=== PATIENT | female | born 1935 | race Caucasian/White ===

== ENCOUNTER 2017-10-08 17:16 | Emergency (ER) | payer OTHER ==
[2017-10-08 17:29] VITALS: BP 154/75
--- NOTE | 2017-10-08 17:37 | UC ---
Hand/Wrist HPI - HPI Summary HPI Summary: C/O left index finger redness swelling and pain since yesterday. Much worse today. Redness is spreading up to the first knuckle. - History Of Current Complaint Chief Complaint: UCUpperExtremity Stated Complaint: L FINGER - PAIN AND SWOLLEN Time Seen by Provider: 10/08/17 17:30 Hx Obtained From: Patient Hx Last Menstrual Period: n/a Onset/Duration: Worse Since - today Severity Initially: Mild Severity Currently: Severe Pain Intensity: 9 Character Of Pain: Sharp, Throbbing Aggravating Factor(s): Movement Alleviating Factor(s): Nothing Associated Signs And Symptoms: Positive: Swelling, Redness. Negative: Fever Related History: Dominant Hand Right - Allergies/Home Medications Allergies/Adverse Reactions: Allergies Allergy/AdvReac Type Severity Reaction Status Date / Time No Known Allergies Allergy Verified 10/08/17 17:29 PMH/Surg Hx/FS Hx/Imm Hx Endocrine History: Diabetes Cardiovascular History: Hypertension Respiratory History: Asthma - Surgical History Surgical History: Yes Surgery Procedure, Year, and Place: colon cancer 1/2 colon removed. - Family History Known Family History: Positive: Cardiac Disease, Hypertension, Diabetes - Social History Occupation: Retired Lives: With Family Alcohol Use: None Substance Use Type: None Smoking Status (MU): Never Smoked Tobacco Review of Systems Skin: Other - redness left index finger Is Patient Immunocompromised?: No All Other Systems Reviewed And Are Negative: Yes Physical Exam Triage Information Reviewed: Yes Appearance: Well-Appearing, Well-Nourished, Pain Distress - mild Vital Signs: Initial Vital Signs Temp 99.1 F 10/08/17 17:24 Pulse 100 10/08/17 17:24 Resp 16 10/08/17 17:24 BP 154/75 10/08/17 17:24 Pulse Ox 96 10/08/17 17:24 Vital Signs Reviewed: Yes Eyes: Positive: Conjunctiva Clear Neck exam: Normal Respiratory Exam: Normal Cardiovascular Exam: Normal Musculoskeletal: Positive: ROM Limited @ - Left index finger DIP, Edema @ - pretibial edema 1-2+ bilaterally Neurological Exam: Normal Psychological Exam: Normal Skin: Positive: Other - Erythema with tenderness on the ulnar side of the left index fingernail with erythema extending proximally to the DIP. Hand/Wrist Course/Dx - Differential Dx/Diagnosis Differential Diagnosis/HQI/PQRI: Abrasion, Cellulitis, Felon, Paronychia Provider Diagnoses: Paronychia left index finger Discharge - Sign-Out/Discharge Documenting (check all that apply): Discharge/Admit/Transfer - Discharge Plan Condition: Stable Disposition: HOME Prescriptions: Sulfamethox/Trimethoprim DS* [Bactrim DS 800/160 TAB*] 1 tab PO BID #14 tab Patient Education Materials: Paronychia (ED), Sulfamethoxazole/Trimethoprim ( By mouth) Referrals: Palmira Cochran MD [Primary Care Provider] - Additional Instructions: Decrease potassium in the diet on the antibiotics For leg cramps: 1. Good hydration. 2. Vit D3 5000iu 3 caps all at once once a week= 2000iu a day. 3. Calcium 1000-1200mg a day. 4. Magnesium 400 or 500mg in the evening. - Billing Disposition and Condition Condition: STABLE Disposition: Home
[2017-10-08] MEDS ORDERED: Sulfamethox/Trimethoprim DS 800/160* TAB PO ONE (17:44)
== END 2017-10-08 18:01 | disposition home or self-care (01) ==
LOC: UCCORT 17:16
DX: L03.012 Cellulitis of left finger (principal); E11.9 Type 2 diabetes mellitus without complications; I10 Essential (primary) hypertension
CPT/HCPCS: 99213; A9270-GY; G0463

== ENCOUNTER 2019-01-31 18:26 | Emergency (ER) | payer MEDICARE ==
--- OUTSIDE RECORDS SUMMARY | 2019-01-31 18:36 | XMS REPORT | Continuity of Care Document ---
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 Farzana Tee, REFERRAL CLERK Onset: 12/08/2011 Gastroesophageal reflux disease Pam Jerez MD Onset: 02/07/2011 Vitamin deficiency Pam Jerez MD Onset: 02/07/2011 Benign essential hypertension Pam Jerez MD Onset: 01/27/2011 Pain in limb Marcello Woodruff M.D., Onset: 12/25/2018 [facility] Dyspnea Marcello Woodruff M.D., Onset: 12/25/2018 [facility] Social History Type Date Description Comments Sex Unknown Tobacco Use Start: Unknown Never Smoked Cigarettes ETOH Use Denies alcohol use Tobacco Use Start: Unknown Patient has never smoked Smoking Status Reviewed: 12/25/18 Patient has never smoked Allergies, Adverse Reactions, Alerts Active Allergies Reaction Severity Comments Date Propoxyphene Dyspepsia 01/27/2011 Azathioprine 01/27/2011 Pen-Vee-K GI, unsure 08/10/2011 Penicillin G Hives 12/25/2018 Medications Active Medications SIG Qnty Indications Ordering Provider Date Vitamin D3 50MG/2000 take 1 tablet Marcello Woodruff 12/25/2018 Iu daily Junaid Mcqueen, [facility] B 12 500 MG take one tablet Marcello Woodruff 12/25/2018 by mouth daily Junaid Mcqueen, [facility] Apple Cidar take 1 capsule Marcello Woodruff 12/25/2018 one per day Junaid Mcqueen, [facility] Metoprolol Tartrate take 3 tablets 180tabs [place], 04/22/2015 every day MD Pam 25mg Tablets Metformin HCL 1 by mouth twice 180tabs [place], 500mg a day MD Pam Tablets Omeprazole 1 by mouth every 90caps [place], 20mg day MD Pam Capsules DR Hartman HFA 1-2 puffs q 4-6 1units [place], 108mcg/Act hours prn MD Pam Aerosol Aspirin 81 1 by mouth every Unknown 81mg Tablets day Ramipril 1 by mouth every Unknown 10mg Capsules day Coconut Oil 1 by mouth every Unknown 1000mg day Capsules [place] 3 500 take one every Unknown 500mg day Capsules Vitamin C take 2 in the Unknown 500mg morning Chewtabs Garlic 1 by mouth every Unknown 1000mg Capsules day Vitamin E Complex 1 by mouth every Unknown day 400Unit Capsules Immunizations CPT Code Status Date Vaccine Lot # [id number] Given 03/31/2015 Pneumococcal Conjugate Vaccine 13 Valent For [id number] Intramuscular Use Q2038 Given 02/27/2015 Influenza Vaccine (Fluzone) Age 3 And Older 84618 Given 01/06/2014 flu vaccination 13675 Given 03/15/2013 flu vaccination 94935 Given 01/20/2012 Pneumovax Injection Vital Signs Date Vital Result Comment 12/25/2018 3:14pm BP Systolic Sitting Left Arm 148 mmHg BP Diastolic Sitting Left Arm 70 mmHg Heart Rate 66 /min Respiratory Rate 20 /min Weight 201.25 lb O2 % BldC Oximetry 96 % Ra 07/01/2015 10:44am BP Systolic 188 mmHg BP Diastolic 90 mmHg Body Temperature 98.2 F Heart Rate 93 /min Respiratory Rate 18 /min Height 62.75 inches 5'2.75" Weight 221.12 lb BMI (Body Mass Index) 39.5 kg/m2 BSA (Body Surface Area) 2.01 m2 O2 % BldC Oximetry 97 % Results Description No Information Available Procedures Date Code Description Status 12/25/2018 12220 EKG-Tracing And Report Completed 04/24/2011 71934526 Colonoscopy Completed 04/24/2011 58752258 Mammogram Completed 04/24/2009 694884608 Bone Mineral Density Test Completed Medical Devices Description No Information Available Encounters Type Date Location Provider Dx Diagnosis Office Visit 12/25/2018 Cardiology Office Marcello Woodruff I10 Essential ( primary) 2:40p Junaid Mcqueen, [facility] hypertension R06.02 Shortness of breath M79.606 Pain in leg, unspecified Assessments Date Code Description Provider 12/25/2018 I10 Essential (primary) hypertension Marcello Woodruff M.D., [facility] 12/25/2018 R06.02 Shortness of breath Marcello Woodruff M.D., [facility] 12/25/2018 M79.606 Pain in leg, unspecified Marcello Woodruff M.D., [facility] Plan of Treatment 12/25/2018 - Marcello Woodruff M.D., [facility]10 Essential (primary) hypertensionComments:BP goal is <130/80 mmHg. Controlled No changes.R06.02 Shortness of breathNew Orders:Echocardiogram, Scheduled: 01/03/19Comments:She will have an echo to determine LVF. I believe her SOB may be related to her [id number] Pain in leg, unspecifiedComments:It seems to me that the pain may be related to neuritis and not to circulatory issues. She will address this issue with her PCPAllNew Medication:Vitamin D3 50MG/2000 Iu - take 1 tablet dailyB 12 500 MG - take one tablet by mouth dailyApple Cidar - take 1 capsule one per dayFollow up:Follow up with us on a PRN basis. Functional Status Functional Condition Comment Date Status Glasses Active Mental Status Description No Information Available Referrals Description No Information Available
--- OUTSIDE RECORDS SUMMARY | 2019-01-31 18:36 | XMS REPORT | Continuity of Care Document ---
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 Mechanic Apprentice [phone] Problems Active Problems Provider Date Malignant tumor of colon Kale Ford, Onset: 11/30/2011 [facility]: 11/29/2012 [facility]ener[facility] Onset: 2012 multiple joints Malignant tumor of ascending colon 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, 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 Onset: 12/08/2011 Gastroesophageal reflux disease Pam Jerez MD Onset: 02/07/2011 Vitamin deficiency Pam Jerez MD Onset: 02/07/2011 Benign essential hypertension Pam Jerez MD Onset: 01/27/2011 Pain in limb Marcello Woodruff M.D., Onset: 12/25/2018 [facility] Dyspnea Marcello Woodruff M.D., Onset: 12/25/2018 [facility] Social History Type Date Description Comments [...] Marcello Woodruff 12/25/2018 Iu daily Junaid Mcqueen, [facility] B 12 500 MG take one tablet Marcello Woodruff 12/25/2018 by mouth daily Junaid Mcqueen, [facility] Apple Cidar take 1 capsule Marcello Woodruff 12/25/2018 one per day Junaid Mcqueen, [facility] Metoprolol Tartrate take 3 tablets 180tabs [place], 04/22/2015 every day MD Pam 25mg Tablets Metformin HCL 1 by mouth twice 180tabs [place], 500mg a day MD Pam Tablets Omeprazole 1 by mouth every 90caps [place], 20mg day MD Pam Capsules DR Hartman HFA 1-2 puffs q 4-6 1units [place], 108mcg/Act hours prn MD Pam Aerosol Aspirin 81 1 by mouth every Unknown 81mg Tablets day DR [place] 1 by mouth every Unknown 10mg Capsules day Coconut Oil 1 by mouth every Unknown 1000mg day Capsules [place] 3 500 take one every Unknown 500mg day Capsules Vitamin C take 2 in the Unknown 500mg morning Chewtabs Garlic 1 by mouth every Unknown 1000mg Capsules day Vitamin E Complex 1 by mouth every Unknown day 400Unit Capsules Immunizations CPT Code Status Date Vaccine Lot # [id number] Given 03/31/2015 Pneumococcal Conjugate Vaccine 13 Valent For [id number] Intramuscular Use Q2038 Given 02/27/2015 Influenza Vaccine (Fluzone) Age 3 And Older 03929 Given 01/06/2014 flu vaccination 26572 Given 03/15/2013 flu vaccination 87385 Given 01/20/2012 Pneumovax Injection Vital Signs Date [...] Available Procedures Date Code Description Status 12/25/2018 86339 EKG-Tracing And Report Completed 04/24/2011 [id number] Colonoscopy Completed 04/24/2011 [id number] Mammogram Completed 04/24/2009 247124041 Bone Mineral Density Test Completed Medical Devices Description No Information Available Encounters Type Date Location Provider Dx Diagnosis Office Visit 12/25/2018 Cardiology Office Marcello Woodruff I10 Essential ( primary) 2:40p Junaid Mcqueen, [facility] hypertension R06.02 Shortness of breath M79.606 Pain in leg, unspecified Assessments Date Code Description Provider 12/25/2018 I10 Essential (primary) hypertension Marcello Woodruff M.D., [facility] 12/25/2018 R06.02 Shortness of breath Marcello Woodruff M.D., [facility] 12/25/2018 M79.606 Pain in leg, unspecified Marcello Woodruff M.D., [facility] Plan of Treatment 12/25/2018 - Marcello Woodruff M.D., [facility]10 Essential (primary) hypertensionComments:BP goal is <130/80 mmHg. Controlled No changes.R06.02 Shortness of breathNew Orders:Echocardiogram, Ordered: 12/25/18Comments:She will have an echo to determine LVF. I believe her SOB may be related to her [id number] Pain in leg, unspecifiedComments:It seems to me [...]
--- OUTSIDE RECORDS SUMMARY | 2019-01-31 18:36 | XMS REPORT | Continuity of Care Document ---
:1935 External Reference #:[id number] Author Name Palmira Cochran MD Address [address] [place] [address] Care Team Providers Name Role Phone [facility] Diabetes Education - Diabetes Care Team Information It Service Continuity Supervisor Educator [facility] Food And Nutrition Dept - Care Team Information It Service Continuity Supervisor [phone] Nutrition, Education Curt Posada MD Care Team Information It Service Continuity Supervisor [phone] Kale Ford MD - Surgery Care Team Information It Service Continuity Supervisor [phone] Marcello Woodruff MD - Cardiovascular Care Team Information It Service Continuity Supervisor Disease Problems Active Problems Provider Date Type 2 diabetes mellitus Palmira Cochran MD Onset: 07/14/2015 Essential hypertension Palmira Cochran MD Onset: 02/05/2016 Gastroesophageal reflux disease Palmira Cochran MD Onset: 12/30/2004 Localized, primary osteoarthritis Palmira Cochran MD Onset: 07/14/2015 History of malignant neoplasm of colon Palmira Cochran MD Onset: 07/14/2015 Obesity Palmira Cochran MD Onset: 05/25/2018 Varicose veins of lower extremity with Palmira Cochran MD Onset: 08/30/2018 inflammation Social History Type Date Description Comments Sex Unknown ETOH Use Denies alcohol use Tobacco Use Start: Unknown Patient has never smoked Smoking Status Reviewed: 10/20/17 Patient has never smoked Allergies, Adverse Reactions, Alerts Active Allergies Reaction Severity Comments Date Darvon Nausea/Vomiting 12/30/2004 Penicillin Rash 07/14/2015 Medications Active Medications SIG Qnty Indications Ordering Provider Date Glipizide ER 1 by mouth every 90tabs E11.9 Palmira Cochran, 12/07/2018 2.5mg day MD Tablets ER 24HR Metformin HCL Take 1 Tablet By 180tabs E11.9 Palmira Cochran, 05/25/2018 1000mg Mouth Twice A MD Tablets Day Meloxicam 1 by mouth every 30tabs M19.91 Palmira Cochran, 02/22/2018 7.5mg Tablets day as needed MD for pain Aspirin Ec 1 by mouth every otc E11.9 Palmira Cochran, 06/01/2016 81mg Tablets day MD ARNETT Ramipril Take 1 Capsule 90caps I10 Palmira Cochran, 01/05/2016 10mg Capsules By Mouth Every MD Day Vitamin D-3 1 by mouth every 30caps Palmira Cochran, 07/14/2015 1000Unit day MD Capsules Omeprazole Take 1 Capsule 90caps K21.9 Palmira Cochran, 07/14/2015 20mg By Mouth Every MD Capsules DR Day Metoprolol Succinate Take 1 And 1/2 135tabs I10 Palmira Cochran, ER Tablets By Mouth MD 50mg Tablets ER 24HR Every Day Magnesium 1 by mouth every Unknown 500mg day Capsules Medications Administered in Office Medication SIG Qnty Indications Ordering Provider Date PPD Injection Palmira Cochran MD 05/25/2018 PPD Injection Schedule, Nurses 05/12/2017 PPD Injection Schedule, Nurses 05/16/2016 Immunizations CPT Code Status Date Vaccine Lot # [id number] Given 02/12/2018 Flu Vaccine NOS Q2039 Given 02/13/2017 Flu Vaccine NOS Q2039 Given 02/05/2016 Flu Vaccine NOS 12555 Given 01/05/2016 Pneumococcal 23 Immunization Adult Or [id number] Immunosuppressed Patient Q2035 Given 01/28/2015 Afluria Imunization 05056 Given 05/30/2014 Prevnar 13 Pneumococal Conjugate Vaccine [id number] Refused 02/22/2018 Shingrix (Shingles) Zoster Vaccine HZV, Recombinant , Subunit, Adj Vital Signs Date Vital Result Comment 12/07/2018 8:35am Weight 198.00 lb Heart Rate 88 /min BP Systolic 110 mmHg BP Diastolic 60 mmHg Respiratory Rate 18 /min Height 63.50 inches 5'3.50" BMI (Body Mass Index) 34.5 kg/m2 08/30/2018 9:52am Weight 201.00 lb Heart Rate 85 /min BP Systolic 134 mmHg BP Diastolic 80 mmHg Respiratory Rate 18 /min Height 63.50 inches 5'3.50" O2 % BldC Oximetry 95 % Ra BMI (Body Mass Index) 35.0 kg/m2 Results Test Date Facility Test Result H/L Range Note Basic (BMP) 11/30/2018 [facility] Sodium 138 mmol/L 135-146 1, 2 Potassium 4.7 mmol/L 3.5-5.2 Chloride# 102 mmol/L 97-110 3 Carbon Dioxide 27 mmol/L 24-34 Glucose 168 mg/dL High 70-105 BUN 19 mg/dL 6-26 Creatinine 0.8 mg/dL 0.5-1.4 Calcium 9.7 mg/dL 8.5-10.5 4 Female Egfr 75 >60 5 Male Egfr 86 >60 6 Anion Gap 9 mmol/L 5-15 7 Hemoglobin A1c 11/30/2018 [facility] Hemoglobin A1c 8.4 % High 4.1-5.9 Estimated Average Glucose Calc 194 mg/dL High 71-140 Comprehensive Met Panel-[facility] 08/22/2018 [facility] Sodium 138 mmol/L 135- 146 8 Potassium 4.2 mmol/L 3.5-5.2 Chloride# 101 mmol/L 97-110 9 Carbon Dioxide 27 mmol/L 24-34 Glucose 165 mg/dL High 70-105 BUN 14 mg/dL 6-26 Creatinine 0.8 mg/dL 0.5-1.4 Calcium 9.8 mg/dL 8.5-10.2 Total Protein 7.0 g/dL 6.0-8.0 Albumin 4.3 g/dL 3.6-4.9 Globulin 2.7 g/dL 2.0-3.5 A/G Ratio 1.6 Ratio 1.0-2.2 Total Bilirubin 0.7 mg/dL 0.1-1.3 Alkaline Phosphatase 70 U/L 24-140 Alt 37 U/L 3-42 Ast 33 U/L 8-42 Anion Gap 10 mmol/L 5- 10 Female Egfr 70 >60 11 Male Egfr 84 >60 12 Hemoglobin A1c 08/22/2018 [facility] Hemoglobin A1c 8.1 % High 4.1-5.9 Estimated Average Glucose Calc 186 mg/dL High 71-140 1 3 mos 2 Updated reference range on new analyzer 3 Updated reference range on new analyzer 4 Updated reference range 08-22-2018 5 Concerning GFR Guidelines for Americans: Normal function or mild renal disease, if clinically at risk: >/= 60 mL/min Moderately decreased: 30-59 Severely decreased: 15-29 Renal failure: <15 There is reduced accuracy above 60ml/min/1.73 m squared, but the numeric value may be clinically useful in the near 60 range 6 Concerning GFR Guidelines: Normal function or mild renal disease, if clinically at risk: >/= 60 mL/min Moderately decreased: 30-59 Severely decreased: 15-29 Renal failure: <15 There is reduced accuracy above 60ml/min/1.73 m squared, but the numeric value may be clinically useful in the near 60 range Glomerular Filtration Rate (GFR) is estimated based on the CKD-EPI equation, which assumes a steady state for creatinine as recommended by the National Kidney Disease Education Program in conjunction with the National Institutes of Health and the National Kidney Foundation. Clinical conditions in which it may be necessary to measure GFR by using clearance methods include extremes of age and body size, severe malnutrition or obesity, diseases of skeletal muscle, paraplegia or quadriplegia, vegetarian diet, rapidly changing kidney function, and calculation of the dose of potentially toxic drugs that are excreted by the kidneys. 7 Updated Reference Range 8 Updated reference range on new analyzer 9 Updated reference range on new analyzer 10 Updated Reference Range 11 Concerning GFR Guidelines for Americans: Normal function or mild renal disease, if clinically at risk: >/= 60 mL/min Moderately decreased: 30-59 Severely decreased: 15-29 Renal failure: <15 There is reduced accuracy above 60ml/min/1.73 m squared, but the numeric value may be clinically useful in the near 60 range 12 Concerning GFR Guidelines: Normal function or mild renal disease, if clinically at risk: >/= 60 mL/min Moderately decreased: 30-59 Severely decreased: 15-29 Renal failure: <15 There is reduced accuracy above 60ml/min/1.73 m squared, but the numeric value may be clinically useful in the near 60 range Glomerular Filtration Rate (GFR) is estimated based on the CKD-EPI equation, which assumes a steady state for creatinine as recommended by the National Kidney Disease Education Program in conjunction with the National Institutes of Health and the National Kidney Foundation. Clinical conditions in which it may be necessary to measure GFR by using clearance methods include extremes of age and body size, severe malnutrition or obesity, diseases of skeletal muscle, paraplegia or quadriplegia, vegetarian diet, rapidly changing kidney function, and calculation of the dose of potentially toxic drugs that are excreted by the kidneys. Procedures Date Code Description Status 06/26/2018 [id number] Mammogram Completed 08/28/2017 [id number] Diabetic Retinal Eye Exam Completed 12/04/2015 [id number] Colonoscopy Completed Medical Devices Description No Information Available Encounters Type Date Location Provider Dx Diagnosis Office Visit 08/30/2018 9:45a [facility] Palmira Cochran MD E66.9 Obesity, unspecified Z00.00 Encntr for general adult medical exam w/o abnormal findings E11.9 Type 2 diabetes mellitus without complications I10 Essential (primary) hypertension J45.20 Mild intermittent asthma, uncomplicated K21.9 Gastro-esophageal reflux disease without esophagitis M19.91 Primary osteoarthritis, unspecified site Z85.038 Personal history of malignant neoplasm of large intestine N18.3 Chronic kidney disease, stage 3 (moderate) I83.10 Varicose veins of unsp lower extremity with inflammation Z68.35 Body mass index (BMI) 35.0-35.9, adult Assessments Date Code Description Provider 12/07/2018 E66.9 Obesity, unspecified Palmira Cochran MD 12/07/2018 E11.9 Type 2 diabetes mellitus without Palmira Cochran MD complications 12/07/2018 I10 Essential hypertension Palmira Cochran MD 12/07/2018 K21.9 Gastroesophageal reflux disease Palmira Cochran MD 12/07/2018 M19.91 Primary osteoarthritis, unspecified site Palmira Cochran MD 12/07/2018 Z85.038 Personal history of other malignant neoplasm Palmira Cochran MD of large intestine 12/07/2018 N18.3 Chronic kidney disease, stage 3 (moderate) Palmira Cochran MD 12/07/2018 I83.10 Varicose veins of unspecified lower extremity Palmira Cochran MD with inflammation 12/07/2018 R06.02 Shortness of breath Palmira Cochran MD 12/07/2018 Z68.34 Body mass index (BMI) 34.0-34.9, adult Palmira Cochran MD 11/30/2018 E11.9 Type 2 diabetes mellitus without Palmira Cochran MD complications 11/30/2018 E11.9 Type 2 diabetes mellitus without Schedule, Laboratory complications 11/30/2018 E11.9 Type 2 diabetes mellitus without [facility] complications 08/30/2018 E66.9 Obesity, unspecified Palmira Cochran MD 08/30/2018 Z00.00 Encntr for general adult medical exam w/o Palmira Cochran MD abnormal findings 08/30/2018 E11.9 Type 2 diabetes mellitus without Palmira Cochran MD complications 08/30/2018 I10 Essential (primary) hypertension Palmira Cochran MD 08/30/2018 J45.20 Mild intermittent asthma, uncomplicated Palmira Cochran MD 08/30/2018 K21.9 Gastro-esophageal reflux disease without Palmira Cochran MD esophagitis 08/30/2018 M19.91 Primary osteoarthritis, unspecified site Palmira Cochran MD 08/30/2018 Z85.038 Personal history of malignant neoplasm of Palmira Cochran MD large intestine 08/30/2018 N18.3 Chronic kidney disease, stage 3 (moderate) Palmira Cochran MD 08/30/2018 I83.10 Varicose veins of unsp lower extremity with Palmira Cochran MD inflammation 08/30/2018 Z68.35 Body mass index (BMI) 35.0-35.9, adult Palmira Cochran MD 08/22/2018 E11.9 Type 2 diabetes mellitus without Palmira Cochran MD complications 08/22/2018 E11.9 Type 2 diabetes mellitus without Schedule, Laboratory complications 08/22/2018 E11.9 Type 2 diabetes mellitus without [facility] complications Plan of Treatment Future Appointment(s):03/08/2019 8:50 am - Schedule, Laboratory at [facility]2018 8:00 am - Palmira Cochran MD at [facility]12/07/2018 - Palmira Cochran MDE66.9 Obesity, unspecifiedComments:Counseled about strategies for weight loss and the impact of weight on chronic medical problems.Work on healthy lifestyle, with regular exercise (20 min daily will help) and eat a healthy diet. Formal diet plans work best.E11.9 Type 2 diabetes mellitus without complicationsNew Medication:Glipizide ER 2.5 mg - 1 by mouth every dayNew Labs:Hemoglobin A1c, Scheduled: 03/08/19Lipid, Scheduled: 03/08/19Comments:Diabetes is worsening. HbA1c has increased to 8.4. Her goal is to be near 8. Recommended to 20 minutes of exercise a day. She was advised to take her aspirin daily. We will add a low dose of glipizide.Referral:Marcello Woodruff MD, Cardiology/Phys/ OsteoFollow up:3-month follow up with fasting labs prior.I10 Essential hypertensionNew Labs:Comprehensive Met Panel-[facility], Scheduled: 03/08/19Comments: We repeated her blood pressure today in the clinic; it was around 110/60. Continue current medication.Referral:Marcello Woodruff MD, Cardiology/Phys/ NoudnK70.9 Gastroesophageal reflux diseaseNew Labs:Comprehensive Met Panel-[facility] , Scheduled: 03/08/19Comments:She was recommended to try skipping doses. She needs the medications daily or else her symptoms would return.M19.91 Primary osteoarthritis, unspecified siteComments:She was recommended to try taking Tylenol for pain. If Tylenol is not helping with the pain she cantake Meloxicam.Z85.038 Personal history of other malignant neoplasm of large intestineComments:She follows up with Dr. Ford for colon cancer. She is due to repeat her colonoscopy.N18.3 Chronic kidney disease, stage 3 (moderate) New Labs:Comprehensive Met Panel-[facility], Scheduled: 03/08/19Comments:In remission , at this point. She was advised minimize use of WudynbcbkU47.10 Varicose veins of unspecified lower extremity with inflammationComments:We will refer the patient to vascular surgeon, Dr. Posada, for further evaluation and treatment.R06.02 Shortness of breathNew Xrays:Chest Xray, 2 Views, Scheduled: Comments:We will get chest x-ray for the shortness of breath. We will refer her to see a mold maker helper as recommended her to see a mold maker helper. She is at increased risk of heart disease.Referral:Marcello Woodruff MD, Cardiology/Phys/LqqfnC07.34 Body mass index (BMI) 34.0-34.9, adultComments:The BMI is the ratio between height and weight. goal for a person over age 65 is between 23 and 30. You are overweight. Work on healthy lifestyle, with regular exercise (20 min daily will help) and eat a healthy diet. Formal diet plans work best. Functional Status Functional Condition Comment Date Status Complete lower and upper and lower dentures Active Negative for Hearing Aid in Both ears Inactive Mental Status Description No Information Available Referrals Refer to Reason for Referral Status Appt Date Marcello Woodruff MD Dr Ferrar has recommended a cardiology Scheduled 2018 referral due to pain in legs and shortness of breath morning appts please faxed 12/07/18 samantha spoke to pateint and she is aware of time and date of appt 12/07/18 samantha [address] [facility] [place] [place] [address] [phone] Curt Posada MD evaluation and treatment painful varicose Closed 09/18 veins Spoke to neelima Baez. _TS 08/30 Faxed direct. _TS LMTCB with appt date, time and location. letter sent -TS 08/30 CALLED AND SPOKE TO MONICA- SHE WILL HAVE JOLIE SEND THE NOTE CM 10/[address] [facility] [place] [address] [phone]
[2019-01-31 19:36] VITALS: BP 182/86
--- NOTE | 2019-01-31 19:42 | UC ---
Respiratory Complaint HPI - HPI Summary HPI Summary: Pt presents with c/o cough, nasal congestion, sob, fever, chills, X 3-4 days. Pt recently traveled by plane and began feeling ill just prior to travel from [place] to here. - History of Current Complaint Chief Complaint: UCRespiratory Stated Complaint: COLD SYMPTOMS Time Seen by Provider: 01/31/19 19:24 Hx Obtained From: Patient Hx Last Menstrual Period: n/a ?: No Onset/Duration: Gradual Onset, Lasting Days, Still Present, Worse Since - onset Timing: Constant Severity Initially: Mild Severity Currently: Moderate Pain Intensity: 0 Character: Cough: Productive, Sputum Description: - thick yellow Aggravating Factors: Exertion, Deep Breaths, Recumbent Position Alleviating Factors: Nothing Associated Signs And Symptoms: Positive: Wheezing, URI, Nasal Congestion - Risk Factors Pulmonary Embolism Risk Factors: Recent Travel Cardiac Risk Factors: Hypertension Pseudomonas Risk Factors: Negative Tuberculosis Risk Factors: Negative - Allergies/Home Medications Allergies/Adverse Reactions: Allergies Allergy/AdvReac Type Severity Reaction Status Date / Time Penicillins Allergy Rash Verified 01/31/19 19:03 propoxyphene [From Darvon] Allergy Vomiting Verified 01/31/19 19:03 Home Medications: Home Medications Aspirin EC TAB* [Ecotrin EC Low Dose 81 MG*] 1 tab DAILY 01/31/19 [History Confirmed 01/31/19] PMH/Surg Hx/FS Hx/Imm Hx Previously Healthy: Yes Endocrine History: Diabetes Cardiovascular History: Hypertension - Surgical History Surgical History: Yes Surgery Procedure, Year, and Place: colon cancer 1/2 colon removed. - Family History Known Family History: Positive: Cardiac Disease, Hypertension, Diabetes - Social History Occupation: Retired Lives: Alone Alcohol Use: None Substance Use Type: None Smoking Status (MU): Never Smoked Tobacco Have You Smoked in the Last Year: No Review of Systems All Other Systems Reviewed And Are Negative: Yes Constitutional: Positive: Fever, Chills, Fatigue Skin: Positive: Negative Eyes: Positive: Negative ENT: Positive: Sinus Congestion Respiratory: Positive: Shortness Of Breath, Cough Cardiovascular: Positive: Negative Gastrointestinal: Positive: Negative Genitourinary: Positive: Negative Motor: Positive: Negative Neurovascular: Positive: Negative Musculoskeletal: Positive: Negative Neurological: Positive: Negative Psychological: Positive: Negative Is Patient Immunocompromised?: No Physical Exam Triage Information Reviewed: Yes Appearance: Ill-Appearing Vital Signs: Initial Vital Signs Temp 99.7 F 01/31/19 19:05 Pulse 110 01/31/19 19:05 Resp 26 01/31/19 19:05 BP 177/87 01/31/19 19:05 Pulse Ox 98 01/31/19 19:05 Vital Signs Reviewed: Yes Eye Exam: Normal ENT: Positive: Nasal congestion, TM bulging Dental Exam: Normal Neck exam: Normal Respiratory: Positive: Decreased breath sounds, Wheezing Cardiovascular: Positive: Tachycardia Musculoskeletal Exam: Normal Neurological Exam: Normal Psychological Exam: Normal Skin Exam: Normal Diagnostics - Radiology No standard instances Radiology Interpretation Completed By: ED Physician - possible infiltrate right middle lobe Respiratory Course/Dx - Course Course Of Treatment: I discussed with the pt and Dr. Valles antibiotic choice and decided on levoquin given pt's allergy to pcn, her unwillingness to wait 20 minutes for rocephin IM. I also discussed with the pt the use of prednisone and need for frequent BG checks. Pt verbalized understanding and agreed to plan of care. - Differential Dx/Diagnosis Differential Diagnosis/HQI/PQRI: Bronchitis, Pulmonary Embolism, Other - pneumonia Provider Diagnosis: Pneumonia Discharge ED - Sign-Out/Discharge Documenting (check all that apply): Patient Departure All imaging exams completed and their final reports reviewed: No - Discharge Plan Condition: Stable Disposition: HOME Prescriptions: Levofloxacin TAB* [Levaquin 500 Tab*] 500 mg PO DAILY #4 tab predniSONE TAB* [Deltasone 20 MG TAB*] 20 mg PO DAILY #4 tab Patient Education Materials: Community Acquired Pneumonia (ED) Forms: *Work Release Referrals: Palmira Cochran MD [Primary Care Provider] - If Needed Additional Instructions: Please follow u p with your PCP tomorrow. Please check your blood glucose more frequent. If your symptoms do not improve, please go directly to the closest emergency room. Please do not take any medications that have pseudophed. Please only take over the counter medication for symptoms management and relief that are Coricidin brand or the generic equivalent. - Billing Disposition and Condition Condition: STABLE Disposition: Home
[2019-01-31] MEDS ORDERED: Levofloxacin TAB* 500 MG PO ONE (20:16)
--- NOTE | 2019-02-01 07:40 | UC ---
- Progress Note Progress Note: Per Dr. Del Rosario: Chest xray consistent with COPD. Patient was advised of possible pneumonia. Please call to advise that reading is consistent with COPD, but I would have her continue the course of antibiotics and follow up with her primary care doctor if not improving. Course/Dx - Diagnoses Provider Diagnoses: Pneumonia Discharge ED - Sign-Out/Discharge Documenting (check all that apply): Patient Departure All imaging exams completed and their final reports reviewed: Yes - Discharge Plan Condition: Stable Disposition: HOME Prescriptions: Levofloxacin TAB* [Levaquin 500 Tab*] 500 mg PO DAILY #4 tab predniSONE TAB* [Deltasone 20 MG TAB*] 20 mg PO DAILY #4 tab Patient Education Materials: Community Acquired Pneumonia (ED) Forms: *Work Release Referrals: Palmira Cochran MD [Primary Care Provider] - If Needed Additional Instructions: Please follow u p with your PCP tomorrow. Please check your blood glucose more frequent. If your symptoms do not improve, please go directly to the closest emergency room. Please do not take any medications that have pseudophed. Please only take over the counter medication for symptoms management and relief that are Coricidin brand or the generic equivalent. - Billing Disposition and Condition Condition: STABLE Disposition: Home
== END 2019-01-31 20:28 | disposition home or self-care (01) ==
LOC: UCCORT 18:26
DX: J18.9 Pneumonia, unspecified organism (principal); R09.81 Nasal congestion; I10 Essential (primary) hypertension; E11.9 Type 2 diabetes mellitus without complications; Z79.82 Long term (current) use of aspirin; Z88.5 Allergy status to narcotic agent; Z88.8 Allergy status to other drugs, medicaments and biological substances; Z85.038 Personal history of other malignant neoplasm of large intestine
CPT/HCPCS: 71046; 99212; G0463